=== PATIENT | female | born 1980 | race Caucasian/White ===

== ENCOUNTER 2018-05-16 05:37 | Day surgery (SDC) | payer OTHER ==
[2018-05-16] VITALS (10 sets, daily range): BP systolic 102–119; BP diastolic 65–76; PULSE 58–72; RESP 10–20; Ht 170.2 cm; Wt 76.4 kg
[~2018-05-16] VITALS: Ht 170.2 cm; Wt 76.4 kg
[2018-05-16] MEDS ORDERED: SEVOFLURANE 15 MIN ONE (07:00)
[2018-05-16] MEDS ORDERED: LIDOCAINE 2% (SDV) 5 ML INJ ONE (07:00)
[2018-05-16] MEDS ORDERED: POLYMYXIN/BACITRACIN 1L IRRIG ONE (07:02)
[2018-05-16] MEDS ORDERED: BUPIVACAINE 0.5% (SDV) 30 ML INJ ONE (07:02)
--- NOTE | 2018-05-16 07:25 | PREAC ---
Date/Time of Note Date/Time of Note DATE: 05/16/18 TIME: 07:23 Anesthesia Eval and Record Evaluation Time Pre-Procedure Interview DATE: 05/16/18 TIME: 07:23 Age 37 Sex female NPO: 8 hrs Preoperative diagnosis left foot exostosis Planned procedure left foot first metatarsal cuneform fusion Past Medical History Past Medical History: None Surgery & Anesthesia Issues No known issue Meds Anticoagulation: No Beta Arpita within 24 hr: No Reason Beta Arpita not given: Pt. not on B-Arpita No Active Prescriptions or Reported Meds Meds reviewed: Yes Allergies Coded Allergies: No Known Drug Allergies (Verified Allergy, Unknown, 05/16/18) Allergies Reviewed: Yes Labs/Studies Labs Reviewed: Reviewed by anesthesiologist test: Negative Pre-procedure Exam Last vitals Vital Signs Date Temp Pulse Resp B/P (MAP) Pulse Ox O2 O2 Flow FiO2 Time Delivery Rate 05/16/18 97.1 69 18 114/72 100 Room Air 06:30 (86) Airway: Adequate mouth opening, Adequate thyromental dist Mallampati: Mallampati I Teeth: Normal Lung: Normal Heart: Normal ASA Physical Status ASA physical status: 1 Emergency: None Planned Anesthetic General/MAC: LMA Pre-operative Attestations Prior to commencing anesthesia and surgery, the patient was re-evaluated, there was verification of: *The patient's identity *The results of appropriate recent lab work and preoperative vital signs *The above evaluation not changing prior to induction *Anesthetic plan, risk benefits, alternative and complications discussed with patient/family; questions answered; patient/family understands, accepts and wishes to proceed. SHERIN COMBS May 16, 2018 07:25
[2018-05-16] MEDS ORDERED: PROPOFOL 20 ML ONE (07:44)
[2018-05-16] MEDS ORDERED: ROCURONIUM 50 MG INJ ONE (07:46)
--- NOTE | 2018-05-16 08:04 | HPN ---
Date/Time of Note Date/Time of Note DATE: 05/16/18 TIME: 08:04 Interval H&P Admission Note Pt. seen H&P reviewed: No system changes QUINTEN ISSA DPM May 16, 2018 08:04
[2018-05-16] MEDS ORDERED: DEXAMETHASONE 4 MG/ML 5 ML INJ ONE (08:29)
[2018-05-16] MEDS ORDERED: ONDANSETRON 4 MG INJ ONE (08:30)
[2018-05-16] MEDS ORDERED: CEFAZOLIN 1 GM INJ ONE (09:43)
--- NOTE | 2018-05-16 09:51 | PAC ---
Date/Time of Note Date/Time of Note DATE: 05/16/18 TIME: 09:50 Post-Anesthesia Notes Post-Anesthesia Note Last documented vital signs Vital Signs Date Temp Pulse Resp B/P (MAP) Pulse Ox O2 O2 Flow FiO2 Time Delivery Rate 05/16/18 97.1 69 18 114/72 100 Room Air 0950 (86) Activity: WNL Respiratory function: WNL Cardiovascular function: WNL Mental status: Baseline Pain reasonably controlled: Yes Hydration appropriate: Yes Nausea/Vomiting absent: Yes SHERIN COMBS May 16, 2018 09:51
[2018-05-16] MEDS ORDERED: HYDROmorphONE 1 MG/5 ML IV SYRINGE IV ONE (09:54)
[2018-05-16] MEDS ORDERED: METOCLOPRAMIDE 10 MG INJ IV PRN (10:00)
[2018-05-16] MEDS ORDERED: EPHEDrine SULFATE 50 MG/5 ML SYG IV PRN (10:00)
[2018-05-16] MEDS ORDERED: hydrALAzine 20 MG INJ IV PRN (10:00)
[2018-05-16] MEDS ORDERED: ALBUTEROL 0.083% (NEB) 2.5 MG/3 ML AMP HHN PRN (10:00)
[2018-05-16] MEDS ORDERED: OXYCODONE/ACETAMINOPHEN (5/325) TAB PO PRN ×2 (10:00)
[2018-05-16] MEDS ORDERED: LABETALOL HCL 20MG INJ IV PRN (10:00)
[2018-05-16] MEDS ORDERED: KETOROLAC 30 MG INJ IV PRN (10:00)
[2018-05-16] MEDS ORDERED: DIPHENHYDRAMINE 50 MG INJ IV PRN (10:00)
[2018-05-16] MEDS ORDERED: ONDANSETRON 4 MG INJ IV PRN (10:00)
[2018-05-16] MEDS ORDERED: FENTAnyl 50 MCG/ML VIAL IV PRN ×3 (10:00)
[2018-05-16] MEDS ORDERED: HYDROmorphONE 1 MG/5 ML IV SYRINGE IV PRN ×3 (10:00)
[2018-05-16] MEDS ORDERED: MEPERIDINE 25 MG INJ IV PRN (10:00)
--- NOTE | 2018-05-16 10:00 | OPR ---
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 Left foot chronic pain Operation/Procedure Performed Exostectomy of the left foot Left first metatarsal cuneiform joint fusion Application of posterior splint left lower extremity Surgeon see signature line Soda Room Operator None Anesthesia Type: general Estimated Blood Loss: minimal Transfusion none Specimen Bone from the left foot Grafts/Implants none Tubes/Drains None Complications none Pt Condition Post Procedure: stable Disposition: PACU Indications This is a pleasant 37-year-old female patient who has been suffering with chronic pain in the left foot secondary to large bony exostosis of the dorsal aspect of the foot and severe degenerative joint disease of the first metatarsal cuneiform joint. Recommended procedure is exostectomy of the left foot and fusion of the left first metatarsal cuneiform joint. Risks and complications of this type of surgery was discussed with patient in great detail. Risks and complications discussed include, but are not limited to, postoperative infection, postoperative pain, chronic pain and disability, hardware failure, malunion, nonunion, delayed union, failure of surgery to correct the problem, need for additional surgical procedures, deep venous thrombosis, gait disturbance, problems with shoegear, limitation of activities, limb loss and loss of life. Patient understands the discussion and agrees to the procedure. An informed consent was obtained, signed and placed in the chart. No guarantee or warrantee was given or implied as to the outcome of the procedure either in verbal or written form. Procedure Description The patient was seen in the preoperative unit. The proposed surgery was dis cussed with patient in great detail. Risks and complications of this type of surgery was discussed with patient in great detail. Opportunity was given to patient to ask questions and all questions were answered. The patient acknowledges understanding of the discussion. An informed consent was then obtained, signed and placed in the chart. Patient was taken to the operating room and was placed on the operating table in the supine position. All bony prominences were padded properly. A timeout was called by the circulating nurse. Everyone in the operating room was agreeable to the timeout. The patient was then placed under general anesthesia by the anesthesiologist. A thigh tourniquet was applied to the left thigh. The left lower extremity was scrubbed,l prepped, and draped in the usual aseptic manner. Procedure #1: Exostectomy left foot Attention was directed to the dorsal aspect of the left midfoot. A 5 cm linear incision was made over the dorsal medial aspect of the first metatarsocuneiform joint. Dissection was deepened with care being taken to identify and protect vital neurovascular structures. Bleeders were cauterized as necessary. Sharp and blunt dissection was done to the periosteal layer of the first metatarsal cuneiform joint. A large bony prominence was found. Periosteal dissection was done and the bony exostosis and the joint was exposed fully. Using an osteotome and mallet, the bony exostosis was cut and passed to the back table. Rough edges were smoothed using a hand rasp. The wound was flushed with copious amounts of sterile normal saline. Procedure #2: Left first metatarsal cuneiform joint fusion Attention was then directed to the first met cuneiform joint. Using osteotome and mallet, I started to remove the articular surface of both the medial cuneiform and the base of the first metatarsal. I was able to remove 90% of the articular surface using osteotome and mallet. Next, I used a power saw to create the fusion surface and also to get the excess bone that was more diffic ult to remove using an osteotome and mallet. Once I was able to release the joint the first metatarsal cuneiform joint was then approximated and there was no tension. About 3 mm of space was created in the joint as a result of removal of the articular surface. The wound was flushed with copious amounts of sterile normal saline. I inserted a laminar energy analyst and used a 0.062 K wire to make drill holes in both the cuneiform and the base of the first metatarsal. Next, the first metatarsocuneiform joint was then reduced to the desired position and secured temporarily using a 0.062 K wire. Fixation was done using tsering both on the dorsal and medial aspect of the joint. Compression was noted at the fusion site. Next, all rough edges were smoothed using a hand rasp. There was no further exostosis and no rough edges palpable on the dorsal skin level. Next, the subcutaneous layer was closed using 4-0 Vicryl and the skin was closed using 5-0 Monocryl in subcuticular stitch pattern. Steri-Strips were applied. I injected the left ankle using 16 cc of 0.5% Marcaine plain for postop anesthesia. Sterile dressing was applied to the left foot and ankle. A posterior splint was applied to the left lower extremity. The patient tolerated procedure and anesthesia well. The patient was transferred to the recovery room with vital signs stable and vascular status intact to left lower extremity. The patient will be discharged home after postoperative monitoring. Postoperative orders were written. Patient will be followed up in the office in 1 week. QUINTEN ISSA DPM May 16, 2018 10:00
== END 2018-05-16 11:55 | disposition home or self-care (01) ==
LOC: SDS 05:37
PROVIDERS: ATTEND Podiatrist Foot & Ankle Surgery
DX: M13.872 Other specified arthritis, left ankle and foot (principal); D16.32 Benign neoplasm of short bones of left lower limb
CPT/HCPCS: 28750; 73630; 84703; 88304; 88311; J0690; J1100; J1170; J2405; J3010; Z7512; Z7610